=== PATIENT | male | born 1935 | race Hispanic/Latino ===

== ENCOUNTER 2019-01-25 17:24 | Emergency (ER) | payer MEDICARE ==
[~2019-01-25] VITALS: Ht 165.1 cm; Wt 87.1 kg
== END 2019-01-25 19:47 | disposition home or self-care (01) ==
LOC: ER 17:24
DX: H60.91 Unspecified otitis externa, right ear (principal); I10 Essential (primary) hypertension; E11.9 Type 2 diabetes mellitus without complications; G30.9 Alzheimer's disease, unspecified; F02.80 Dementia in other diseases classified elsewhere, unspecified severity, without behavioral disturbance, psychotic disturbance, mood disturbance, and anxiety; I50.9 Heart failure, unspecified; K21.9 Gastro-esophageal reflux disease without esophagitis; E78.5 Hyperlipidemia, unspecified
CPT/HCPCS: 36415; 82948; 99282

== ENCOUNTER 2021-03-04 21:19 | Emergency (ER) | payer MEDICARE ==
[~2021-03-04] VITALS: Ht 165.1 cm; Wt 87.1 kg
[2021-03-04] MEDS ORDERED: ULTRAM 50MG50 MG PO (21:34)
[2021-03-04] MEDS ORDERED: TRAMADOL HCL 50 MG TAB PO ONE (21:45)
[2021-03-04] MEDS ORDERED: TRAMADOL HCL 50 MG TAB ONE (21:47)
== END 2021-03-04 22:47 | disposition home or self-care (01) ==
LOC: ER 21:42
DX: S16.1XXA Strain of muscle, fascia and tendon at neck level, initial encounter (principal); Y93.84 Activity, sleeping; Y92.003 Bedroom of unspecified non-institutional (private) residence as the place of occurrence of the external cause; I10 Essential (primary) hypertension; E11.9 Type 2 diabetes mellitus without complications; E78.5 Hyperlipidemia, unspecified; K21.9 Gastro-esophageal reflux disease without esophagitis; I50.9 Heart failure, unspecified; G30.9 Alzheimer's disease, unspecified; F02.80 Dementia in other diseases classified elsewhere, unspecified severity, without behavioral disturbance, psychotic disturbance, mood disturbance, and anxiety